=== PATIENT | female | born 1985 | race Caucasian/White ===

== ENCOUNTER 2020-09-22 20:20 | Emergency (ER) | payer BC ==
[~2020-09-22] VITALS: Ht 170.2 cm; Wt 86.2 kg
[2020-09-22 20:25] VITALS: BP 159/90
--- NOTE | 2020-09-22 20:28 | NUR ---
TO LOBBY A/W BED AMBULATORY
[2020-09-22] MEDS ORDERED: FLUORESCEIN OPTH STRIP 1 MG OP ONE (23:35)
[2020-09-22] MEDS ORDERED: FLUORESCEIN OPTH STRIP 1 MG ONE (23:36)
[2020-09-23 00:10] VITALS: BP 112/78
--- NOTE | 2020-09-23 00:10 | NUR ---
EVALUATED, TREATED, AND D/C BY ERMD. NO NURSING INTERVENTIONS NEEDED.
== END 2020-09-23 00:10 | disposition home or self-care (01) ==
LOC: MED 20:20
DX: H57.11 Ocular pain, right eye (principal); R42 Dizziness and giddiness
CPT/HCPCS: 70450; 99284